=== PATIENT | male | born 1975 | race Caucasian/White ===

== ENCOUNTER → 2019-02-23 | Outpatient (REF) | payer BC ==
[2019-02-23 11:48] LABS: BASO # 0.1 10^3/uL (0.0-0.2); BASO % 0.7 % (0.0-1.0); EOS # 0.1 10^3/uL (0.0-0.50); EOS % 1.4 % (0.0-3.0); HEMATOCRIT 47.8 % (42.0-52.0); HEMOGLOBIN 16.7 g/dl (13.5-17.5); LYMPH # 1.9 10^3/uL (1.5-4.5); LYMPH % 21.7 % (24.0-44.0); MEAN CORPUSCULAR HEMOGLOBIN 31.3 pg (27.0-33.0); MEAN CORPUSCULAR HGB CONC 34.9 g/dl (32.0-36.5); MEAN CORPUSCULAR VOLUME 89.5 fl (80.0-96.0); MONO # 1.1 10^3/uL (0.0-0.8); MONO % 13.3 % (0.0-5.0); NEUTROPHILS # 5.3 10^3/uL (1.8-7.7); NEUTROPHILS % 62.5 % (36.0-66.0); PLATELET COUNT, AUTOMATED 146 10^3/uL (150-450); RED BLOOD COUNT 5.34 10^6/uL (4.30-6.10); WHITE BLOOD COUNT 8.5 10^3/uL (4.0-10.0)
[2019-02-23 12:27] LABS: ALBUMIN 4.2 GM/DL (3.2-5.2); ALT/SGPT 69 U/L (12-78); BILIRUBIN,TOTAL 1.3 MG/DL (0.2-1.0); BLOOD UREA NITROGEN 16 MG/DL (7-18); CALCIUM LEVEL 11.6 MG/DL (8.5-10.1); CARBON DIOXIDE LEVEL 30 MEQ/L (21-32); CHLORIDE LEVEL 105 MEQ/L (98-107); CHOLESTEROL LEVEL 173 MG/DL (<200); CREATININE FOR GFR 1.22 MG/DL (0.70-1.30); GLOMERULAR FILTRATION RATE > 60.0 (>60); GLUCOSE, FASTING 91 MG/DL (70-100); HDL CHOLESTEROL 46 MG/DL (>40); LDL CHOLESTEROL 91 MG/DL (<100); NON-HDL-C 127 MG/DL; POTASSIUM SERUM 4.7 MEQ/L (3.5-5.1); SODIUM LEVEL 140 MEQ/L (136-145); TOTAL PROTEIN 7.3 GM/DL (6.4-8.2); TRIGLYCERIDES LEVEL 182 MG/DL (<150)
[2019-02-23 12:59] LABS: HEMOGLOBIN A1c 5.2 %
== END ==
LOC: M SFHCLERA 10:02
PROVIDERS: ATTEND Family Medicine
DX: E66.01 Morbid (severe) obesity due to excess calories (principal)

== ENCOUNTER → 2019-03-02 | Outpatient (REF) | payer BC ==
[2019-03-02 20:20] LABS: IONIZED CALCIUM 5.8 MG/DL (4.5-5.3)
[2019-03-02 20:27] LABS: BILIRUBIN,TOTAL 0.9 MG/DL (0.2-1.0); CALCIUM LEVEL 11.5 MG/DL (8.5-10.1)
[2019-03-02 20:36] LABS: TOTAL 25(OH) VITAMIN D 20.2 NG/ML (30.0-100.0)
[2019-03-02 20:40] LABS: PTH INTACT 150.5 PG/ML (18.5-88.0)
== END ==
LOC: M SFHCLERA 16:50
PROVIDERS: ATTEND Family Medicine
DX: E83.52 Hypercalcemia (principal)

== ENCOUNTER → 2019-03-22 | Outpatient (CLI) | payer BC ==
[~2019-03-22] MED LIST: CEPH250T; COEN100T PO; HAWT150C PO; NACCAP PO; NATTOKINASE PO; SM G150T PO; [UNRECOGNIZED DRUG - REMARK]
== END ==
LOC: M LAB 13:21
PROVIDERS: ATTEND Internal Medicine Endocrinology, Diabetes & Metabolism
DX: E83.52 Hypercalcemia (principal)

== ENCOUNTER 2019-03-25 08:27 | Observation (INO) | payer BC ==
[~2019-03-25] VITALS: Ht 182.9 cm; Wt 118.6 kg
[2019-03-25] VITALS (12 sets, daily range): BP systolic 140–188; BP diastolic 82–118; O2SAT 95
[2019-03-25] MEDS ORDERED: [UNRECOGNIZED DRUG - REMARK] (08:37)
[2019-03-25] MEDS ORDERED: CEPH250T (08:37)
[2019-03-25 09:14] LABS: BASO # 0.1 10^3/uL (0.0-0.2); BASO % 0.9 % (0.0-1.0); EOS # 0.2 10^3/uL (0.0-0.50); EOS % 2.4 % (0.0-3.0); HEMATOCRIT 49.2 % (42.0-52.0); HEMOGLOBIN 17.3 g/dl (13.5-17.5); LYMPH # 2.2 10^3/uL (1.5-4.5); LYMPH % 29.1 % (24.0-44.0); MEAN CORPUSCULAR HEMOGLOBIN 31.7 pg (27.0-33.0); MEAN CORPUSCULAR HGB CONC 35.2 g/dl (32.0-36.5); MEAN CORPUSCULAR VOLUME 90.1 fl (80.0-96.0); MONO # 0.7 10^3/uL (0.0-0.8); MONO % 9.7 % (0.0-5.0); NEUTROPHILS # 4.3 10^3/uL (1.8-7.7); NEUTROPHILS % 57.5 % (36.0-66.0); PLATELET COUNT, AUTOMATED 140 10^3/uL (150-450); RED BLOOD COUNT 5.46 10^6/uL (4.30-6.10); WHITE BLOOD COUNT 7.6 10^3/uL (4.0-10.0)
--- NOTE | 2019-03-25 09:34 | REP ---
Normal chest, 08:55 a.m., single AP view with the the patient sitting: There are no comparisons. The lung flores are clear. The cardiac size is normal. The lavern, mediastinum, and skeletal structures are unremarkable. Impression: Negative portable chest. Electronically Signed by Bruce Simon MD 03/25/2019 09:25 A
[2019-03-25 09:42] LABS: BLOOD UREA NITROGEN 12 MG/DL (7-18); CALCIUM LEVEL 10.8 MG/DL (8.5-10.1); CARBON DIOXIDE LEVEL 29 MEQ/L (21-32); CHLORIDE LEVEL 109 MEQ/L (98-107); CK-MB VALUE MASS 5.5 NG/ML (<3.6); CPK CREATINE PHOSPHOKINASE 224 U/L (39-308); CREATININE FOR GFR 1.08 MG/DL (0.70-1.30); GLOMERULAR FILTRATION RATE > 60.0 (>60); GLUCOSE, FASTING 95 MG/DL (70-100); MB/CK RELATIVE INDEX 2.46 (< OR =4); POTASSIUM SERUM 4.3 MEQ/L (3.5-5.1); SODIUM LEVEL 142 MEQ/L (136-145); TROPONIN I < 0.02 NG/ML (< 0.10)
[2019-03-25] MEDS ORDERED: LOSARTAN 25 MG TAB PO ONE (10:45)
[2019-03-25] MEDS ORDERED: AUGMENTIN 875 MG TAB PO ONE (10:45)
--- NOTE | 2019-03-25 10:56 | REP ---
CT of the head without contrast Indication: CVA. Comparison: None Technique: Axial CT of the head was performed without contrast. Findings: There is no visible soft tissue swelling or calvarial fracture. There is no evidence of acute intracranial hemorrhage or extra-axial fluid collection. [place]ola-white matter differentiation is maintained. There is no mass effect or midline shift. The basal cisterns are patent. There is no hydrocephalus. There is mild mucosal thickening of the ethmoid air cells bilaterally. The visualized mastoid air cells are clear. Impression: No acute intracranial abnormality. Electronically Signed by Delroy Patrick MD 03/25/2019 10:48 A
[2019-03-25] MEDS ORDERED: LABETALOL HCL 100 MG/20 ML VIAL IV STA (12:12)
[2019-03-25] MEDS ORDERED: SM G150T PO (12:47)
[2019-03-25] MEDS ORDERED: NATTOKINASE PO (12:47)
[2019-03-25] MEDS ORDERED: NACCAP PO (12:47)
[2019-03-25] MEDS ORDERED: COEN100T PO (12:47)
[2019-03-25] MEDS ORDERED: HAWT150C PO (12:47)
[2019-03-25] MEDS: amLODIPine 10 MG TAB PO SCH (12:57)
[2019-03-25] MEDS: LABETALOL 100 MG TAB PO SCH ×2 (15:48→20:31)
[2019-03-25] MEDS: cloNIDine 0.1 MG TAB PO PRN ×2 (15:49→20:30)
[2019-03-25] MEDS ORDERED: SLF 3 ML SYR IV PRN (16:15)
[2019-03-25] MEDS ORDERED: METOCLOPRAMIDE INJ 10MG/2ML VIAL (J2765) IV ONE (17:00)
[2019-03-25] MEDS ORDERED: LORazepam 2 MG/ML VIAL (J2060) IV PRN (17:00)
[2019-03-25] MEDS ORDERED: OXAZEPAM 10 MG CAP PO PRN (17:00)
[2019-03-25] MEDS ORDERED: KETOROLAC 30 MG/ML VIAL (J1885) IV ONE (17:00)
[2019-03-25] MEDS ORDERED: hydrALAZINE INJ 20 MG/ML VIAL IV ONE (17:00)
[2019-03-25] MEDS ORDERED: ACETAMINOPHEN 500 MG TAB PO ONE (17:00)
[2019-03-25] MEDS: **hydrALAZINE HCL** 25 MG TAB PO SCH ×2 (17:24→23:33)
[2019-03-25 18:12] LABS: APPEARANCE, URINE CLEAR (CLEAR); BACTERIA, URINE AUTO NEGATIVE (NEGATIVE); BILIRUBIN, URINE AUTO NEGATIVE (NEGATIVE); BLOOD, URINE BLOOD NEGATIVE (NEGATIVE); COLOR, URINE STRAW (YELLOW); GLUCOSE, URINE (UA) AUTO NEGATIVE (NEGATIVE); KETONE, URINE AUTO NEGATIVE (NEGATIVE); LEUKOCYTE ESTERASE, URINE AUTO NEGATIVE (NEGATIVE); NITRITE, URINE AUTO NEGATIVE (NEGATIVE); PROTEIN, URINE AUTO NEGATIVE (NEGATIVE); RBC, URINE AUTO 1 /HPF (0-3); SPECIFIC GRAVITY URINE AUTO 1.008 (1.002-1.035); SQUAMOUS EPITHELIAL CELL UR AU 0 /HPF (0-6); UROBILINOGEN, URINE AUTO 0.2 mg/dL (0.0-2.0); WBC, URINE AUTO 0 /HPF (0-3)
[2019-03-25 18:34] LABS: AMPHETAMINES LEVEL URINE NEGATIVE (NEGATIVE); BARBITURATES URINE NEGATIVE (NEGATIVE); BENZODIAZEPINES URINE NEGATIVE (NEGATIVE); CANNABINOIDS URINE NEGATIVE (NEGATIVE); COCAINE METABOLITE URINE NEGATIVE (NEGATIVE); METHADONE URINE NEGATIVE (NEGATIVE); OPIATES URINE NEGATIVE (NEGATIVE); PHENCYCLIDINE URINE NEGATIVE (NEGATIVE)
[2019-03-25 18:58] LABS: CREATININE, URINE 74.4 MG/DL; MALB URINE SIEMENS 18.5 MG/L; MAU/CREAT RATIO 24.8 MCG/MG (0.0-30.0)
[2019-03-25] MEDS: AUGMENTIN 875 MG TAB PO SCH (20:29)
[2019-03-25] MEDS: SLF 3 ML SYR IV SCH (20:54)
[2019-03-25] MEDS: ACETAMINOPHEN TAB 650MG DOSE (2X325MG) PO PRN (20:59)
[2019-03-25] MEDS ORDERED: LABETALOL 100 MG TAB PO SCH (21:00)
--- NOTE | 2019-03-25 21:24 | ECGEPIP ---
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
--- NOTE | 2019-03-25 21:37 | HPE ---
DATE OF ADMISSION: 03/25/2019 CHIEF COMPLAINT: "Sick to my stomach, dizziness." HISTORY OF PRESENT ILLNESS: This is a 43-year-old male with no past medical history aside from recent diagnosis 1 month ago of hyperparathyroidism, follows with Dr. Yojana Rodgers. Initially found to have elevated calcium level on routine blood tests. Patient has been in his usual state of health until 10 a.m. this morning, when he felt sick to his stomach and dizzy. Patient felt that his equilibrium was out. He was at work at the time. This lasted from 10 a.m. to 5 p.m. Patient did not take any prescription medications for this aside from his coenzyme Q and n-acetylcysteine, garlic, hawthorn extract, and nattokinase vitamin supplements. He denied any recreational drug use. No complaints of palpitations, lightheadedness, near-syncopal episode. No prior episodes of dizziness in the past. Otherwise denied any vomiting, shortness of breath, chest pain, pressure, or tightness, diaphoresis, upper or lower extremity weakness. No fevers, chills, or cough for the past few days. Appetite has been the same. The patient had an earlier episode when he woke up at 1:30 in the morning to urinate. He felt dizzy in the bathroom but thought it was because he was still feeling sleepy and went back to bed. Due to persistent symptoms, patient presented to the emergency room and was found to have hypertensive urgency with systolic pressure of 231, diastolic of 136. CT of the head was negative for acute cerebrovascular accident (CVA). Chest x-ray was negative for pulmonary edema. EKG showed sinus rhythm, ventricular rate of 74 with intraventricular conduction delay. Hospitalist service was called for admission for hypertensive urgency. After receiving one dose of intravenous (IV) labetalol 10 mg, patient's blood pressure decreased from 231/136 to admission of 175/105. Patient complains of headache. No changes in vision. No chest pain, pressure, or any tightness. He was able to stay in the hospital for blood pressure control and evaluation of hypertensive urgency with renal ultrasound with Doppler to rule out renal artery stenosis. Urine drug screen is still pending. PAST MEDICAL HISTORY: 1. Hyperparathyroidism recently diagnosed a month ago. 2. Recent facial cellulitis, treated with outpatient cephalexin. PAST SURGICAL HISTORY: Tonsillectomy. ALLERGIES: No known drug allergies. HOME MEDICATIONS: Cephalexin, coenzyme Q 100 mg daily, acetylcysteine 600 mg daily, garlic 150 mg daily, hawthorn 150 mg twice a day, nattokinase one tablet by mouth daily. PAST SURGICAL HISTORY: Tonsillectomy. SOCIAL HISTORY: Patient drinks four to eight beers a day. No cigarette use. 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 Lives with . No children at home. FAMILY HISTORY: Mother and father are alive in their 60s with unknown medical problems. REVIEW OF SYSTEMS: Per history of present illness (HPI). A 12-point system otherwise negative. PHYSICAL EXAMINATION: Temperature is 98.4, pulse 74, sinus rhythm, respiratory rate is 18, blood pressure is 231/136. Generally, patient is in no respiratory distress. He is awake, alert, oriented times three, answering questions appropriately. He is anicteric. No jaundice. Pupils are equally round and reactive to light and accommodation. Patient has some excoriations on the face around the chin and cheek area. No induration. No significant erythema. There is no purulence. Patient's pupils are not dilated. No jugular venous distention or thyromegaly. Lungs are clear to auscultation. No wheezes, rales, or rhonchi. Air entry is equal bilaterally. Heart: S1, S2, sinus rhythm. No murmurs, rubs, or gallops. Abdomen is soft, nontender, nondistended. Positive bowel sounds. Extremities have no cyanosis, clubbing, or any pitting edema. Neurologically, patient is awake, alert, oriented times three, answering questions appropriately. Pupils are equally round and reactive to light. No dysmetria on exysuy-gb-pyey testing. Face is symmetric. Tongue is midline. Motor function is 5/5 times four extremities. Patient has no decreased sensation bilaterally. Gait is normal. Negative Babinski bilaterally. LABORATORY DATA: White count 7.6, hemoglobin 17, hematocrit 49, platelet count 140. Sodium 142, potassium 4.3, chloride 109, bicarbonate 29, BUN 12, creatinine 1, glucose 95, calcium 10.8. Total CK 224, MB fraction 5.5, relative index 2.46. Troponin less than 0.02. Urinalysis is pending. CT head on March 25 at 10:26 a.m.: No acute intracranial abnormality. Chest x-ray on [place] 29 at 8:44: Negative portable chest. ASSESSMENT AND PLAN: A 43-year-old male with a history of recent facial cellulitis, on cephalexin, given Augmentin. Patient will be admitted for observation for hypertensive urgency. ACTIVE ISSUES: 1. Hypertensive urgency. Urine drug screen to be obtained to rule out drug use and cocaine use. Patient currently had been given intravenous (IV) labetalol 10 mg in the emergency room. He is continued on labetalol 100 mg three times a day, given Norvasc 10 mg, hydralazine 25 every 6 hours, and clonidine. Avoiding angiotensin-converting enzyme (EUN) inhibitors until patient's renal ultrasound with Doppler has been performed to show no renal artery stenosis. Patient is nothing by mouth after midnight. Cycle cardiac markers. 2. History of alcohol abuse. Currently on multivitamin, thiamine, and folate. Ativan as needed for delirium tremens (DT). Clinical [place] Withdrawal Assessment (CIWA) protocol. Serax 10 mg every 4 as needed for residual symptoms. 3. Recent cellulitis, on Augmentin 875 twice a day. Currently no significant signs of facial infection. 4. Alcohol abuse, on CIWA protocol. Monitor for withdrawal symptoms.
[2019-03-26] MEDS: ACETAMINOPHEN TAB 650MG DOSE (2X325MG) PO PRN (01:22)
[2019-03-26 04:00] VITALS: BP 147/96
[2019-03-26] MEDS: SLF 3 ML SYR IV SCH ×2 (04:06→14:00)
[2019-03-26 05:51] LABS: IONIZED CALCIUM 5.6 MG/DL (4.5-5.3)
[2019-03-26 05:58] LABS: HEMATOCRIT 49.5 % (42.0-52.0); HEMOGLOBIN 16.9 g/dl (13.5-17.5); MEAN CORPUSCULAR HEMOGLOBIN 30.7 pg (27.0-33.0); MEAN CORPUSCULAR HGB CONC 34.1 g/dl (32.0-36.5); PLATELET COUNT, AUTOMATED 143 10^3/uL (150-450); WHITE BLOOD COUNT 8.4 10^3/uL (4.0-10.0)
[2019-03-26] MEDS: **hydrALAZINE HCL** 25 MG TAB PO SCH ×3 (06:07→17:13)
[2019-03-26 06:13] LABS: HEMOGLOBIN A1c 4.9 %
[2019-03-26 06:21] LABS: ALBUMIN 3.8 GM/DL (3.2-5.2); ALT/SGPT 68 U/L (12-78); AMYLASE 42 U/L (25-115); BILIRUBIN,TOTAL 1.2 MG/DL (0.2-1.0); BLOOD UREA NITROGEN 14 MG/DL (7-18); CALCIUM LEVEL 10.7 MG/DL (8.5-10.1); CARBON DIOXIDE LEVEL 27 MEQ/L (21-32); CHLORIDE LEVEL 109 MEQ/L (98-107); CHOLESTEROL LEVEL 170 MG/DL (<200); CHOLESTEROL RISK RATIO 3.777 (<5); CREATININE FOR GFR 1.13 MG/DL (0.70-1.30); GLOMERULAR FILTRATION RATE > 60.0 (>60); GLUCOSE, FASTING 101 MG/DL (70-100); HDL CHOLESTEROL 45 MG/DL (>40); LDL CHOLESTEROL 97 MG/DL (<100); LIPASE 171 U/L (73-393); NON-HDL-C 125 MG/DL; POTASSIUM SERUM 3.8 MEQ/L (3.5-5.1); SODIUM LEVEL 143 MEQ/L (136-145); TOTAL PROTEIN 6.6 GM/DL (6.4-8.2); TRIGLYCERIDES LEVEL 142 MG/DL (<150)
[2019-03-26] MEDS: cloNIDine 0.1 MG TAB PO PRN (06:33)
[2019-03-26] MEDS ORDERED: D5W/0.45% SODIUM CHLORIDE 1,000 ML IV ONE (07:30)
[2019-03-26 08:00] VITALS: BP_SYST 160; BP_SYST 176; BP_DIAS 111; BP_DIAS 98
[2019-03-26] MEDS ORDERED: THIAMINE 100 MG TAB PO SCH (09:00)
[2019-03-26] MEDS ORDERED: MULTIVITAMINS/MINERALS THERAP 1 TAB PO SCH (09:00)
[2019-03-26] MEDS ORDERED: FOLIC ACID 1 MG TAB PO SCH (09:00)
[2019-03-26] MEDS: AUGMENTIN 875 MG TAB PO SCH (09:05)
--- NOTE | 2019-03-26 09:06 | REP ---
Renal vascular ultrasound: Right Kidney: Extraparenchymal renal artery. Peak renal artery flow velocity the the of the 131.1 cm/ sec Peak aortic velocity: 174.7 cm/sec Renal/aortic ratio: 0.8. Intraparenchymal renal arteries. Resistive index: upper pole 0.4 a mid pole 0.61 lower pole 0.62 Acceleration time: upper pole 0.02 mid pole 0.02 lower pole 0.02 Left kidney: Extraparenchymal renal artery: Peak renal artery flow velocity: 140.6 cm/sec. Peak aortic velocity: 171.7 cm/sec Renal/aortic ratio: 0.8 Intraparenchymal renal arteries: Resistive index: Upper pole 0.45 mid pole 0.6 a lower pole of 0.56 Acceleration time: Upper pole 0.01 mid pole 0.02 lower pole 0.03 Impression: There is no evidence of renal artery stenosis by Doppler ultrasound. Bilateral renal ultrasound: The kidneys are normal size. The right kidney measures 15.3 x 15.4 x 6.5 cm. The left kidney measures 14.6 x 5.5 x 5.3 cm. Renal cortical echogenicity is normal bilaterally. There is no hydronephrosis on the right on the left. There is. A small 3.9 mm echogenic focus at the mid pole of the right kidney, likely a nonobstructive calculus. There are no other renal calculi. There are no solid or cystic renal masses. Bladder: With color Doppler ultrasound there are bilateral ureteral jets. Impression: Small 3.9 mm nonobstructive right renal calculus. Otherwise, essentially negative bilateral renal ultrasound. Electronically Signed by Bruce Simon MD 03/26/2019 08:57 A
[2019-03-26] MEDS: LABETALOL 100 MG TAB PO SCH ×2 (09:07→16:11)
[2019-03-26] MEDS: amLODIPine 10 MG TAB PO SCH (09:07)
[2019-03-26 09:27] LABS: PTH INTACT 109.5 PG/ML (18.5-88.0)
[2019-03-26 10:24] LABS: TOTAL 25(OH) VITAMIN D 23.8 NG/ML (30.0-100.0)
[2019-03-26] MEDS ORDERED: LOSARTAN 50 MG TAB PO ONE (11:00)
[2019-03-26 12:00] VITALS: BP 166/90
[2019-03-26] MEDS ORDERED: AMOX875T2 PO (15:10)
[2019-03-26] MEDS ORDERED: THIA100TA PO (15:10)
[2019-03-26] MEDS ORDERED: HYDR25TA PO (15:10)
[2019-03-26] MEDS ORDERED: FOLI1TAB11 PO (15:10)
[2019-03-26] MEDS ORDERED: COZA50TA PO (15:10)
[2019-03-26] MEDS ORDERED: LABE10TAB PO (15:10)
[2019-03-26] MEDS ORDERED: AMLO10TA5 PO (15:10)
--- NOTE | 2019-03-26 15:37 | DS.PDOC ---
Discharge Summary General Date of Admission Mar 25, 2019 at 08:28 Date of Discharge 03/26/19 Primary Care Physician: JORGE LUIS HERNANDEZ MD Discharge Summary PROCEDURES PERFORMED DURING STAY: [None]. ADMITTING DIAGNOSES: 1. Hypertensive urgency DISCHARGE DIAGNOSES: 1. Hypertensive urgency without signs of end organ dysfunction White coat hypertension Anxiety Hyperparathyroidism COMPLICATIONS/CHIEF COMPLAINT: Hypertensive Urgency. HPI with HOSPITAL COURSE: 43 y/o M with recent dx hyperparathyroidism following with Dr. Rodgers presents with complaints of feeling sick to his stomach and dizzy but was otherwise asymptomatic. When he presented to the emergency room and was found to have hypertensive urgency with systolic pressure of 231, diastolic of 136. CT of the head was negative for acute cerebrovascularaccident (CVA). Chest x-ray was negative for pulmonary edema. EKG showed sinus rhythm, ventricular rate of 74 with intraventricular conduction delay. Hospitalist service was called for admission for hypertensive urgency. After receiving one dose of intravenous (IV) labetalol 10 mg, patient's blood pressure decreased from 231/136 to admission of 175/105. Patient complains of headache. No changes in vision. No chest pain, pressure, or any tightness. He was able to stay in the hospital for blood pressure control and evaluation of hypertensive urgency with renal ultrasound with Doppler to rule out renal artery stenosis. Renal Ultrasound showed no evidence of renal artery stenosis but did not small 3.9 mm non-obstructive right sided renal calculus. The next morning patient states he feels fine, denies any more symptoms or dizziness. He does state he is extremely anxious to leave the hospital. I recommended titration of his blood pressure medications inpatient however patient and his endorsed that due to his extreme anxiety of being in the hospital he does not want to stay and would prefer to be discharged and follow up with is PMD for continued BP management and possible evaluation of white coat hypertension. I discussed with the patient and his life style modifications, diet, stopping any dietary supplements, limited caffeine use, continued exercise. I also reviewed return precautions with patient and including but not limited to persistent/worsening headache, vision changes, chest pain, vision changes, dyspnea, worsening abdominal pain, LE swelling, focal neurologic changes. He was also instructed to keep a log book of his blood pressures to bring in to his PMD office for review. He states he has an appointment on 04/06 but will call to make an earlier appointment. I discharged him on Norvasc 10, Hydralazine 50mg q6, Losartan 50mg daily, Labetalol 100mg BID. Instructed stop taking the hydralazine if his BP is <100/80 and if continued to be hypotensive to stop labetalol as well, also instructed to stop labetalol if HR is <60. DISCHARGE MEDICATIONS: Please see below. ALLERGIES: Please see below. PHYSICAL EXAMINATION ON DISCHARGE: VITAL SIGNS: Please see below. GENERAL: Athletic/muscular male, appears extremely anxious with his medical stay HEENT: EOMI, MMM NECK: no JVD CARDIOVASCULAR EXAMINATION: S1/S2 present, RRR, no m/r/g noted RESPIRATORY EXAMINATION: CTA b/l, good air entry, no accessory muscles used ABDOMINAL EXAMINATION: Bowel sounds present, ND, NT, no organomegaly noted, no lesions EXTREMITIES: No tremors, no LE edema, muscle strength 5/5, no sensory loss, pulses palpable throughout SKIN: warm, dry, no erythema NEUROLOGICAL EXAMINATION: A&Ox3, no focal neuro deficits PSYCHIATRIC EXAMINATION: anxious, normal affect LABORATORY DATA: Please see below. IMAGING: as listed in HPI PROGNOSIS: Fair ACTIVITY: [As tolerated]. DIET: [2g Na diet. DISCHARGE PLAN: Follow up with your PMD in 1 week, please bring your log book of blood pressures. Please take all medications as directed. Return precautions discussed with patient and , aware of risks of long standing uncontrolled HTN. DISPOSITION: Home with DISCHARGE INSTRUCTIONS: 1. Please take all medications as instructed. Please follow up with your PMD, bring log book of Blood pressures. ITEMS TO FOLLOWUP ON ON OUTPATIENT: 1. PMD to follow up Blood pressures and titrate medications as needed. Possible ambulatory blood pressure monitoring to rule out white coat hypertension. DISCHARGE CONDITION: [Stable]. TIME SPENT ON DISCHARGE: Greater than 35 minutes. Vital Signs/I&Os Vital Signs Date Time Temp Pulse Resp B/P (MAP) Pulse Ox O2 Delivery O2 Flow Rate FiO2 03/26/19 12:00 82 166/90 03/26/19 12:00 98.6 18 97 03/25/19 14:54 Room Air I&O- Last 24 Hours up to 6 AM 03/26/19 06:00 Intake Total 1080 ml Output Total 1750 ml Balance -670 ml Laboratory Data Labs 24H Laboratory Tests 2 03/25/19 17:50: Urine Amphetamines Screen NEGATIVE, Urine Benzodiazepines Screen NEGATIVE, Urine Opiates Screen NEGATIVE, Urine Methadone Screen NEGATIVE, Urine Barbiturates Screen NEGATIVE, Urine Phencyclidine Screen NEGATIVE, Urine Cocaine Metabolite Screen NEGATIVE, Urine Cannabinoids Screen NEGATIVE 03/25/19 17:51: Urine Appearance CLEAR, Urine Color STRAW, Urine pH 6.0, Urine Specific [place] 1.008, Urine Protein NEGATIVE, Urine Glucose (UA) NEGATIVE, Urine Ketones NEGATIVE, Urine Urobilinogen 0.2, Urine Bilirubin NEGATIVE, Urine Leukocyte Esterase NEGATIVE, Urine Blood NEGATIVE, Urine Nitrite NEGATIVE, Urine WBC (Auto) 0, Urine RBC (Auto) 1, Urine Hyaline Casts (Auto) 0, Urine Bacteria (Auto) NEGATIVE, Urine Squamous Epithelial Cells 0, Urine Sperm (Auto) , Urine Creatinine 74.4, Urine Microalbumin 18.5, Urine Microalbumin/Creatinine Ratio 24.8 03/26/19 05:43: Nucleated Red Blood Cells % (auto) 0.0, Anion Gap 7L, Glomerular Filtration Rate > 60.0, Estimated Mean Plasma Glucose 94, Hemoglobin A1c 4.9, Blood Urea Nitrogen 14, Creatinine 1.13, Sodium Level 143, Potassium Level 3.8, Chloride Level 109H, Carbon Dioxide Level 27, Calcium Level 10.7H, Aspartate Amino Transf (AST/SGOT) 24, Alanine Aminotransferase (ALT/SGPT) 68, Alkaline Phosphatase 96, Total Bilirubin 1.2H, Triglycerides Level 142, LDL Cholesterol 97, Total Protein 6.6, Albumin 3.8, Whole Blood Ionized Calcium 5.6H, Albumin/Globulin Ratio 1.36, Total Cholesterol 170, Non-HDL Cholesterol (LDL + VLDL) 125, Total HDL Cholesterol 45, Cholesterol/HDL Ratio 3.777, Amylase Level 42, Lipase 171, 25-Hydroxy Vitamin D Total 23.8L, Parathyroid Hormone (Intact) 109.5H CBC/BMP Laboratory Tests 03/26/19 05:43 Red Blood Count 5.50, Mean Corpuscular Volume 90.0, Mean Corpuscular Hemoglobin 30.7, Mean Corpuscular Hemoglobin Concent 34.1, Red Cell Distribution Width 12.5, Calcium Level 10.7 H, Aspartate Amino Transf (AST/SGOT) 24, Alanine Aminotransferase (ALT/SGPT) 68, Alkaline Phosphatase 96, Total Bilirubin 1.2 H, Triglycerides Level 142, LDL Cholesterol 97, Total Protein 6.6, Albumin 3.8 Discharge Medications Scheduled Acetylcysteine (Nac) 600 Mg Capsule, 600 MG PO DAILY, (Reported) Amlodipine Besylate (Amlodipine Besylate) 10 Mg Tablet, 10 MG PO DAILY Amoxicillin/Potassium Clav (Amox-Clav 875-125 mg Tablet) 1 Each Tablet, 875 MG PO BID Folic Acid (Folic Acid) 1 Mg Tablet, 1 MG PO DAILY Garlic (Garlic) 1 Each Tablet, 150 MG PO DAILY, (Reported) [place] Extract ([place]) 150 Mg Capsule, 150 MG PO BID, (Reported) Hydralazine HCl (Hydralazine HCl) 25 Mg Tablet, 50 MG PO Q6H Labetalol HCl (Labetalol HCl) 100 Mg Tablet, 100 MG PO TID Losartan Potassium (Cozaar) 50 Mg Tablet, 50 MG PO DAILY Thiamine Hcl (Vitamin B-1) 100 Mg Tablet, 100 MG PO DAILY Ubidecarenone (Coenzyme Q10) 100 Mg Tablet, 100 MG PO DAILY, (Reported) [Nattokinase] , 1 TAB PO DAILY, (Reported) Allergies Coded Allergies: No Known Allergies (Unverified , 03/25/19) TESSY EMMANUEL MD Mar 26, 2019 15:37
[2019-03-26 15:48] VITALS: BP 160/76
[2019-03-26 16:00] VITALS: BP 160/76
[2019-03-26 17:13] VITALS: BP 172/88
[2019-03-27] MEDS ORDERED: LOSARTAN 50 MG TAB PO SCH (09:00)
[2019-04-01 08:06] LABS: METANEPHRINE PLASMA 24 pg/mL (0-62); NORMETANEPHRINE PLASMA 57 pg/mL (0-145)
== END 2019-03-26 17:31 | disposition home or self-care (01) ==
LOC: M ED 08:27 → M ED INP 08:28 → M PCU 15:25
PROVIDERS: ADMIT General Practice; ATTEND General Practice
DX: I16.0 Hypertensive urgency (principal); R03.0 Elevated blood-pressure reading, without diagnosis of hypertension; F41.9 Anxiety disorder, unspecified; E21.3 Hyperparathyroidism, unspecified; N20.0 Calculus of kidney; H66.42 Suppurative otitis media, unspecified, left ear; L03.211 Cellulitis of face; F10.10 Alcohol abuse, uncomplicated; Z79.899 Other long term (current) drug therapy; Z79.2 Long term (current) use of antibiotics

== ENCOUNTER → 2019-03-29 | Outpatient (REF) | payer BC ==
[~2019-03-29] MED LIST changes: +AMLO10TA5 PO; +AMOX875T2 PO; +COZA50TA PO; +FOLI1TAB11 PO; +HYDR25TA PO; +LABE10TAB PO; +THIA100TA PO
[2019-04-07 00:06] LABS: CREATINE/CREATININE RATIO 0.02 ratio (0.00-0.04)
== END ==
LOC: M LAB REF 15:57
PROVIDERS: ATTEND Internal Medicine Endocrinology, Diabetes & Metabolism
DX: E83.52 Hypercalcemia (principal)

== ENCOUNTER → 2019-04-06 | Outpatient (REF) | payer BC ==
[2019-04-06 20:26] LABS: BLOOD UREA NITROGEN 20 MG/DL (7-18); CALCIUM LEVEL 11.7 MG/DL (8.5-10.1); CARBON DIOXIDE LEVEL 29 MEQ/L (21-32); CHLORIDE LEVEL 106 MEQ/L (98-107); CREATININE FOR GFR 1.05 MG/DL (0.70-1.30); GLOMERULAR FILTRATION RATE > 60.0 (>60); GLUCOSE, FASTING 85 MG/DL (70-100); MAGNESIUM LEVEL 2.4 MG/DL (1.8-2.4); POTASSIUM SERUM 4.2 MEQ/L (3.5-5.1); SODIUM LEVEL 142 MEQ/L (136-145)
== END ==
LOC: M SFHCLERA 16:08
PROVIDERS: ATTEND Family Medicine
DX: I10 Essential (primary) hypertension (principal)

== ENCOUNTER → 2019-04-06 | Outpatient (CLI) | payer BC ==
--- NOTE | 2019-04-06 15:25 | REP ---
PARATHYROID SESTAMIBI SCAN WITH SPECT IMAGING: Following the intravenous administration of 27.4 millicuries technetium 99m sestamibi, images are obtained of the neck 15 minutes and 3 hours post injection. SPECT images are performed in the axial, coronal, and sagittal planes. Initial images show bilateral salivary gland and thyroid uptake with somewhat increased focal uptake in the inferior left thyroid bed. On the delayed images, there are persistent focal increased uptake in the lower margin of the left thyroid bed. The findings are consistent with a parathyroid adenoma at that location. IMPRESSION: Scintigraphic findings are consistent with a parathyroid adenoma at the inferior margin of the left thyroid bed. Electronically Signed by Bruce Gaxiola MD 04/07/2019 04:54 P
== END ==
LOC: M RAD 08:52
PROVIDERS: ATTEND Internal Medicine Endocrinology, Diabetes & Metabolism
DX: E83.52 Hypercalcemia (principal)

== ENCOUNTER → 2019-06-09 | Outpatient (REF) | payer BC ==
[2019-06-09 20:25] LABS: BASO # 0.1 10^3/uL (0.0-0.2); BASO % 0.7 % (0.0-1.0); EOS # 0.2 10^3/uL (0.0-0.5); EOS % 2.3 % (0.0-3.0); HEMATOCRIT 45.8 % (42.0-52.0); HEMOGLOBIN 15.3 g/dl (13.5-17.5); LYMPH # 2.2 10^3/uL (1.5-5.0); LYMPH % 24.4 % (24.0-44.0); MEAN CORPUSCULAR HEMOGLOBIN 29.8 pg (27.0-33.0); MEAN CORPUSCULAR HGB CONC 33.4 g/dl (32.0-36.5); MEAN CORPUSCULAR VOLUME 89.1 fl (80.0-96.0); MONO # 0.9 10^3/uL (0.0-0.8); MONO % 10.2 % (0.0-5.0); NEUTROPHILS # 5.6 10^3/uL (1.5-8.5); PLATELET COUNT, AUTOMATED 176 10^3/uL (150-450); RED BLOOD COUNT 5.14 10^6/uL (4.30-6.10); WHITE BLOOD COUNT 9.1 10^3/uL (4.0-10.0)
[2019-06-09 20:29] LABS: BLOOD UREA NITROGEN 17 MG/DL (7-18); CALCIUM LEVEL 8.9 MG/DL (8.5-10.1); CARBON DIOXIDE LEVEL 29 MEQ/L (21-32); CHLORIDE LEVEL 105 MEQ/L (98-107); CREATININE FOR GFR 1.07 MG/DL (0.70-1.30); GLOMERULAR FILTRATION RATE > 60.0 (>60); GLUCOSE, FASTING 85 MG/DL (70-100); MAGNESIUM LEVEL 2.2 MG/DL (1.8-2.4); POTASSIUM SERUM 4.2 MEQ/L (3.5-5.1); SODIUM LEVEL 142 MEQ/L (136-145)
== END ==
LOC: M SFHCCLAY 17:28
PROVIDERS: ATTEND Family Medicine
DX: I10 Essential (primary) hypertension (principal); R31.9 Hematuria, unspecified

== ENCOUNTER → 2019-07-06 | Outpatient (CLI) | payer BC ==
[2019-07-06 12:54] LABS: CALCIUM LEVEL 9.2 MG/DL (8.5-10.1)
[2019-07-06 13:01] LABS: PTH INTACT 26.8 PG/ML (18.5-88.0)
== END ==
LOC: M LRY 09:17
DX: E21.0 Primary hyperparathyroidism (principal)

== ENCOUNTER → 2019-08-11 | Outpatient (REF) | payer BC ==
[2019-08-11 20:36] LABS: BLOOD UREA NITROGEN 20 MG/DL (7-18); CALCIUM LEVEL 9.2 MG/DL (8.5-10.1); CARBON DIOXIDE LEVEL 28 MEQ/L (21-32); CHLORIDE LEVEL 106 MEQ/L (98-107); CREATININE FOR GFR 1.08 MG/DL (0.70-1.30); GLOMERULAR FILTRATION RATE > 60.0 (>60); GLUCOSE, FASTING 96 MG/DL (70-100); POTASSIUM SERUM 3.9 MEQ/L (3.5-5.1); SODIUM LEVEL 142 MEQ/L (136-145)
== END ==
LOC: M SFHCLERA 16:58
PROVIDERS: ATTEND Family Medicine
DX: M79.89 Other specified soft tissue disorders (principal)

== ENCOUNTER → 2020-10-07 | Outpatient (CLI) | payer BC ==
[~2020-10-07] MED LIST changes: -AMLO10TA5 PO; +AMLO1TAB25 PO; +LABE100T4 PO; -LABE10TAB PO
[2020-10-07 11:47] LABS: APPEARANCE, URINE CLEAR (CLEAR); BACTERIA, URINE AUTO NEGATIVE (NEGATIVE); BILIRUBIN, URINE AUTO NEGATIVE (NEGATIVE); BLOOD, URINE BLOOD NEGATIVE (NEGATIVE); COLOR, URINE STRAW (YELLOW); GLUCOSE, URINE (UA) AUTO NEGATIVE (NEGATIVE); KETONE, URINE AUTO NEGATIVE (NEGATIVE); LEUKOCYTE ESTERASE, URINE AUTO NEGATIVE (NEGATIVE); NITRITE, URINE AUTO NEGATIVE (NEGATIVE); PROTEIN, URINE AUTO NEGATIVE (NEGATIVE); RBC, URINE AUTO 0 /HPF (0-3); SPECIFIC GRAVITY URINE AUTO 1.004 (1.002-1.035); SQUAMOUS EPITHELIAL CELL UR AU 0 /HPF (0-6); UROBILINOGEN, URINE AUTO 0.2 mg/dL (0.0-2.0); WBC, URINE AUTO 0 /HPF (0-3)
[2020-10-07 11:49] LABS: BASO # 0.1 10^3/uL (0.0-0.2); BASO % 0.9 % (0.0-1.0); EOS # 0.2 10^3/uL (0.0-0.5); EOS % 1.9 % (0.0-3.0); HEMATOCRIT 45.5 % (42.0-52.0); HEMOGLOBIN 15.7 g/dl (13.5-17.5); LYMPH # 2.4 10^3/uL (1.5-5.0); LYMPH % 30.5 % (24.0-44.0); MEAN CORPUSCULAR HEMOGLOBIN 30.8 pg (27.0-33.0); MEAN CORPUSCULAR HGB CONC 34.5 g/dl (32.0-36.5); MEAN CORPUSCULAR VOLUME 89.2 fl (80.0-96.0); MONO # 0.9 10^3/uL (0.0-0.8); MONO % 11.9 % (2.0-8.0); NEUTROPHILS # 4.3 10^3/uL (1.5-8.5); NEUTROPHILS % 54.4 % (36.0-66.0); PLATELET COUNT, AUTOMATED 141 10^3/uL (150-450); WHITE BLOOD COUNT 7.9 10^3/uL (4.0-10.0)
[2020-10-07 12:06] LABS: HEMOGLOBIN A1c 4.9 %
[2020-10-07 12:28] LABS: MALB URINE SIEMENS 31.6 MG/L; MAU/CREAT RATIO 54.4 MCG/MG (0.0-30.0)
[2020-10-07 12:32] LABS: ALT/SGPT 40 U/L (12-78); BILIRUBIN,TOTAL 1.1 MG/DL (0.2-1.0); BLOOD UREA NITROGEN 14 MG/DL (7-18); CARBON DIOXIDE LEVEL 32 MEQ/L (21-32); CHLORIDE LEVEL 106 MEQ/L (98-107); CHOLESTEROL LEVEL 173 MG/DL (<200); CREATININE FOR GFR 1.14 MG/DL (0.70-1.30); GLOMERULAR FILTRATION RATE > 60.0 (>60); GLUCOSE, FASTING 94 MG/DL (70-100); HDL CHOLESTEROL 49 MG/DL (>40); LDL CHOLESTEROL 100 MG/DL (<100); NON-HDL-C 124 MG/DL; POTASSIUM SERUM 4.1 MEQ/L (3.5-5.1); SODIUM LEVEL 141 MEQ/L (136-145); TOTAL PROTEIN 6.9 GM/DL (6.4-8.2); TRIGLYCERIDES LEVEL 118 MG/DL (<150)
[2020-10-09 10:51] LABS: TOTAL 25(OH) VITAMIN D 44.7 NG/ML (30.0-100.0)
== END ==
LOC: M LAB 11:21
PROVIDERS: ATTEND Family Medicine
DX: E21.0 Primary hyperparathyroidism (principal); I10 Essential (primary) hypertension; Z13.220 Encounter for screening for lipoid disorders

== ENCOUNTER → 2021-03-31 | Outpatient (CLI) | payer BC ==
[2021-03-31 09:34] LABS: BASO # 0.1 10^3/uL (0.0-0.2); EOS # 0.2 10^3/uL (0.0-0.5); EOS % 1.9 % (0.0-3.0); HEMATOCRIT 46.6 % (42.0-52.0); HEMOGLOBIN 16.5 g/dl (13.5-17.5); LYMPH # 2.5 10^3/uL (1.5-5.0); LYMPH % 27.1 % (24.0-44.0); MEAN CORPUSCULAR HEMOGLOBIN 31.3 pg (27.0-33.0); MEAN CORPUSCULAR HGB CONC 35.4 g/dl (32.0-36.5); MEAN CORPUSCULAR VOLUME 88.3 fl (80.0-96.0); MONO # 0.7 10^3/uL (0.0-0.8); MONO % 7.9 % (2.0-8.0); NEUTROPHILS # 5.7 10^3/uL (1.5-8.5); NEUTROPHILS % 61.1 % (36.0-66.0); PLATELET COUNT, AUTOMATED 155 10^3/uL (150-450); RED BLOOD COUNT 5.28 10^6/uL (4.30-6.10); WHITE BLOOD COUNT 9.3 10^3/uL (4.0-10.0)
[2021-03-31 09:46] LABS: BLOOD UREA NITROGEN 16 MG/DL (7-18); CALCIUM LEVEL 9.2 MG/DL (8.5-10.1); CARBON DIOXIDE LEVEL 30 MEQ/L (21-32); CHLORIDE LEVEL 107 MEQ/L (98-107); CREATININE FOR GFR 1.26 MG/DL (0.70-1.30); GLOMERULAR FILTRATION RATE > 60.0 (>60); GLUCOSE, FASTING 112 MG/DL (70-100); MAGNESIUM LEVEL 2.1 MG/DL (1.8-2.4); POTASSIUM SERUM 4.3 MEQ/L (3.5-5.1); SODIUM LEVEL 141 MEQ/L (136-145)
[2021-04-02 10:08] LABS: PTH INTACT 26.8 PG/ML (18.5-88.0)
[2021-04-03 16:08] LABS: Lyme Disease IgG/IgM Antibodie <0.91 ISR (0.00-0.90); Lyme Disease IgM Ab Quantitati <0.80 index (0.00-0.79)
== END ==
LOC: M LAB 09:09
PROVIDERS: ATTEND Family Medicine
DX: E21.3 Hyperparathyroidism, unspecified (principal)

== ENCOUNTER → 2021-12-12 | Outpatient (CLI) | payer BC ==
[2021-12-12 07:51] LABS: APPEARANCE, URINE CLEAR (CLEAR); BACTERIA, URINE AUTO NEGATIVE (NEGATIVE); BILIRUBIN, URINE AUTO NEGATIVE (NEGATIVE); BLOOD, URINE BLOOD 1+ (NEGATIVE); COLOR, URINE YELLOW (YELLOW); GLUCOSE, URINE (UA) AUTO NEGATIVE (NEGATIVE); KETONE, URINE AUTO NEGATIVE (NEGATIVE); LEUKOCYTE ESTERASE, URINE AUTO NEGATIVE (NEGATIVE); MUCUS, URINE SMALL (NEGATIVE); NITRITE, URINE AUTO NEGATIVE (NEGATIVE); PROTEIN, URINE AUTO 1+ mg/dL (NEGATIVE); RBC, URINE AUTO 2 /HPF (0-3); SPECIFIC GRAVITY URINE AUTO 1.018 (1.002-1.035); SQUAMOUS EPITHELIAL CELL UR AU 0 /HPF (0-6); UROBILINOGEN, URINE AUTO 0.2 mg/dL (0.0-2.0); WBC, URINE AUTO 0 /HPF (0-3)
[2021-12-12 07:56] LABS: BLOOD UREA NITROGEN 16 MG/DL (7-18); CALCIUM LEVEL 9.2 MG/DL (8.5-10.1); CARBON DIOXIDE LEVEL 29 MEQ/L (21-32); CHLORIDE LEVEL 106 MEQ/L (98-107); CREATININE FOR GFR 1.21 MG/DL (0.70-1.30); GLOMERULAR FILTRATION RATE > 60.0 (>60); GLUCOSE, FASTING 92 MG/DL (70-100); POTASSIUM SERUM 4.4 MEQ/L (3.5-5.1); SODIUM LEVEL 141 MEQ/L (136-145)
[2021-12-12 08:09] LABS: MAU/CREAT RATIO 64.7 MCG/MG (0.0-30.0)
== END ==
LOC: M LAB 07:04
PROVIDERS: ATTEND Family Medicine
DX: I10 Essential (primary) hypertension (principal)

== ENCOUNTER → 2022-04-30 | Outpatient (CLI) | payer BC ==
[~2022-04-30] MED LIST changes: -LABE100T4 PO; +LABE100T6 PO
[2022-04-30 10:13] LABS: BASO # 0.1 10^3/uL (0.0-0.2); BASO % 0.8 % (0.0-1.0); EOS # 0.1 10^3/uL (0.0-0.5); EOS % 1.5 % (0.0-3.0); HEMATOCRIT 49.4 % (42.0-52.0); HEMOGLOBIN 17.2 g/dl (13.5-17.5); LYMPH # 1.7 10^3/uL (1.5-5.0); LYMPH % 19.3 % (24.0-44.0); MEAN CORPUSCULAR HEMOGLOBIN 30.8 pg (27.0-33.0); MEAN CORPUSCULAR HGB CONC 34.8 g/dl (32.0-36.5); MEAN CORPUSCULAR VOLUME 88.5 fl (80.0-96.0); MONO # 0.8 10^3/uL (0.0-0.8); MONO % 9.1 % (2.0-8.0); NEUTROPHILS # 5.9 10^3/uL (1.5-8.5); NEUTROPHILS % 68.1 % (36.0-66.0); PLATELET COUNT, AUTOMATED 159 10^3/uL (150-450); RED BLOOD COUNT 5.58 10^6/uL (4.30-6.10); WHITE BLOOD COUNT 8.6 10^3/uL (4.0-10.0)
[2022-04-30 11:01] LABS: ALBUMIN 3.8 GM/DL (3.2-5.2); ALT/SGPT 88 U/L (12-78); BLOOD UREA NITROGEN 14 MG/DL (7-18); CALCIUM LEVEL 9.2 MG/DL (8.5-10.1); CARBON DIOXIDE LEVEL 33 MEQ/L (21-32); CHLORIDE LEVEL 101 MEQ/L (98-107); CHOLESTEROL LEVEL 190 MG/DL (<200); CREATININE FOR GFR 1.09 MG/DL (0.70-1.30); GLOMERULAR FILTRATION RATE > 60.0 (>60); GLUCOSE, FASTING 102 MG/DL (70-100); HDL CHOLESTEROL 46 MG/DL (>40); LDL CHOLESTEROL 95 MG/DL (<100); NON-HDL-C 144 MG/DL; POTASSIUM SERUM 3.5 MEQ/L (3.5-5.1); SODIUM LEVEL 138 MEQ/L (136-145); TOTAL PROTEIN 7.6 GM/DL (6.4-8.2); TRIGLYCERIDES LEVEL 243 MG/DL (<150)
[2022-05-01 15:18] LABS: PTH INTACT 26.1 PG/ML (18.5-88.0)
== END ==
LOC: M LAB 08:58
PROVIDERS: ATTEND Internal Medicine Cardiovascular Disease
DX: I10 Essential (primary) hypertension (principal); Z13.220 Encounter for screening for lipoid disorders; E89.2 Postprocedural hypoparathyroidism; R53.83 Other fatigue

== ENCOUNTER → 2022-05-05 | Outpatient (REF) | payer BC | LOC: M LAB REF 05:00 | PROVIDERS: ATTEND Internal Medicine Cardiovascular Disease | DX: I10 Essential (primary) hypertension (principal); E89.2 Postprocedural hypoparathyroidism ==